=== PATIENT | male | born 1935 | race Caucasian/White ===

== ENCOUNTER 2019-02-11 14:25 | Outpatient (CLI) | payer MEDICARE, BC | END 2019-02-11 23:59 | disposition home or self-care (01) | LOC: CVU 14:25 | PROVIDERS: ATTEND Internal Medicine Cardiovascular Disease | DX: I08.8 Other rheumatic multiple valve diseases (principal); I65.23 Occlusion and stenosis of bilateral carotid arteries; I10 Essential (primary) hypertension; E78.2 Mixed hyperlipidemia; I63.9 Cerebral infarction, unspecified | CPT/HCPCS: 93306; 93880 ==